=== PATIENT | female | born 1970 | race Caucasian/White ===

== ENCOUNTER 2022-12-17 08:09 | Day surgery (SDC) | payer BC ==
[~2022-12-17] VITALS: Ht 160 cm; Wt 126.0 kg
[~2022-12-17 08:09] MED LIST: EMGA120I; ERGO500029; ESTR1DIS; METF-838 PO; NS 1,000 ML IV ONE; ONDA8TAB8; TRAZ-189 PO; VENL75TA2 PO; ZONI50CA11 PO; fentaNYL 100 MCG/2 ML INJECTION As Ordered ONE
[2022-12-17] MEDS ORDERED: propofoL 200 MG/20 ML VIAL As Ordered ONE ×2 (09:50→09:54)
[2022-12-17] MEDS ORDERED: LIDOCAINE 2% 100MG/5ML SDV (FOR ANES.) As Ordered ONE (09:50)
[2022-12-17 10:09] VITALS: TEMP 97.4
[2022-12-17 10:30] VITALS: BP 126/65; O2SAT 96
== END 2022-12-17 10:40 | disposition home or self-care (01) ==
LOC: M OPP 08:09
PROVIDERS: ATTEND Surgery
DX: Z12.11 Encounter for screening for malignant neoplasm of colon (principal); K57.30 Diverticulosis of large intestine without perforation or abscess without bleeding; R13.10 Dysphagia, unspecified; F41.9 Anxiety disorder, unspecified; F32.A Depression, unspecified; G43.909 Migraine, unspecified, not intractable, without status migrainosus; Z98.84 Bariatric surgery status; Z88.8 Allergy status to other drugs, medicaments and biological substances; Z79.899 Other long term (current) drug therapy
CPT/HCPCS: 43235; 45378; J3010

== ENCOUNTER → 2023-03-31 | Outpatient (CLI) | payer BC ==
[~2023-03-31] MED LIST changes: -NS 1,000 ML IV ONE; -fentaNYL 100 MCG/2 ML INJECTION As Ordered ONE
== END ==
LOC: M WHC 09:41
PROVIDERS: ATTEND Physician Assistant
DX: N64.4 Mastodynia (principal)

== ENCOUNTER → 2024-10-07 | Outpatient (REF) | payer BC ==
[~2024-10-07] MED LIST changes: +ONDA-284; -ONDA8TAB8
== END ==
LOC: M LAB REF 15:13
PROVIDERS: ATTEND Physician Assistant
DX: R30.0 Dysuria (principal)